=== PATIENT | male | born 1925 | race Caucasian/White ===

== ENCOUNTER 2016-12-21 19:03 | Emergency (ER) | payer MEDICARE, BC ==
[~2016-12-21 19:03] MED LIST: ATARAX-DPS25 MG PO; CRESTOR10 MG PO; DILANTIN DPS100 MG PO; NORCO 5-325 TA1 EACH PO; OMNICEF DPS300 MG PO; SINEMET 25/1001 TAB PO; SYNTHROID100 MCG PO; TEMOVATE O.05%15 GM TP; THERA1 EACH PO; VITAMIN D31000 UNIT PO
--- NOTE | 2016-12-30 23:29 | ER ---
ADMIT: 12/21/2016 RM/LOC: ER [facility] MR#: [id number] [id number] [place], [place] [id number] MELA WORLEY [address] [place] [address] Emergency Room Report SEX: M AGE: 89 : 1925 DATE: 12/21/2016 HISTORY OF PRESENT ILLNESS: Mr. Worley is an 89-year-old male, who lives at home. He has Parkinson's and apparently his must have gone out to get some food, she was around the corner going to get some burgers. When she came back, she realized her was not home, ambulance had picked him up and brought him in here due to the fact that he fell asleep and fell, so he does have a skin tear on his right elbow. PAST MEDICAL HISTORY: Hyperlipidemia, hypothyroidism, CVA, prostate problems, and Parkinson's. He did not hit his head, he went down on his buttocks. ALLERGIES: SEE T-SHEET. MEDICATIONS: See T-sheet. PHYSICAL EXAMINATION: GENERAL: Very pleasant. Flat affect male. VITAL SIGNS: Within normal limits, slightly anxious. RESPIRATIONS: No distress. EXTREMITIES: He does have as mentioned right elbow abrasion, which is covered right now. NEUROLOGIC: He is alert. His dye padder operator is little bit annoyed with him because he is in the ER. Rest of the examination is within normal limits. IMAGING DATA: We did do x-ray of the lumbar spine. 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 Clinical impression is fall. Advised to continue with physical therapy. Follow up with the [facility]. Continue home medications. CLINICAL IMPRESSION: Lumbosacral pain and right elbow abrasion. ROCK Pretty / Eric Huntley MD / dashawn JOB #: [id number] CC: Eric Huntley MD, Attending Physician [facility] Physician, Family Physician
== END 2016-12-21 20:20 | disposition home or self-care (01) ==
LOC: ER 19:03
DX: S50.311A Abrasion of right elbow, initial encounter (principal); M54.5 Low back pain; E78.5 Hyperlipidemia, unspecified; E03.9 Hypothyroidism, unspecified; Z86.73 Personal history of transient ischemic attack (TIA), and cerebral infarction without residual deficits; Z79.899 Other long term (current) drug therapy; W19.XXXA Unspecified fall, initial encounter